=== PATIENT | male | born 1990 | race Caucasian/White ===

== ENCOUNTER 2016-06-30 20:48 | Emergency (ER) | payer OTHER ==
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
[2016-06-30] MEDS ORDERED: HYDROCODONE/ACETAMINOPHEN 5-325 MG TABLET PO ONE (23:19)
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
[2016-07-01 00:22] VITALS: BP 116/65
== END 2016-07-01 01:03 | disposition home or self-care (01) ==
LOC: ER 20:48
DX: S29.012A Strain of muscle and tendon of back wall of thorax, initial encounter (principal); S46.911A Strain of unspecified muscle, fascia and tendon at shoulder and upper arm level, right arm, initial encounter; S39.012A Strain of muscle, fascia and tendon of lower back, initial encounter; M25.511 Pain in right shoulder; M54.9 Dorsalgia, unspecified; V43.62XA Car passenger injured in collision with other type car in traffic accident, initial encounter; F17.200 Nicotine dependence, unspecified, uncomplicated
CPT/HCPCS: 72070; 72110; 99283

== ENCOUNTER 2016-12-07 10:49 | Emergency (ER) | payer SELFPAY ==
[2016-12-07] MEDS ORDERED: OXYCODONE-ACETAMINOPHEN 5-325 MG TABLET PO ONE (11:10)
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
--- NOTE | 2016-12-07 12:03 | RADIOLOGY REPORT (SQ) ---
EXAM DESCRIPTION: CHEST PA/LAT COMPLETED DATE/TIME: 12/07/2016 11:29 am REASON FOR STUDY: coughing blood COMPARISON: 09/21/2012 EXAM PARAMETERS: NUMBER OF VIEWS: two views TECHNIQUE: Digital Frontal and Lateral radiographic views of the chest acquired. RADIATION DOSE: NA LIMITATIONS: none FINDINGS: LUNGS AND PLEURA: No opacities, masses or pneumothorax. No pleural effusion. MEDIASTINUM AND HILAR STRUCTURES: No masses or contour abnormalities. HEART AND VASCULAR STRUCTURES: Heart normal size. No evidence for failure. BONES: No acute findings. HARDWARE: None in the chest. OTHER: No other significant finding. IMPRESSION: NO SIGNIFICANT RADIOGRAPHIC FINDING IN THE CHEST. TECHNICAL DOCUMENTATION: JOB ID: [id number] [employer]- All Rights Reserved
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
[2016-12-07 13:27] VITALS: BP 135/87
== END 2016-12-07 13:22 | disposition home or self-care (01) ==
LOC: ER 10:49
DX: S02.80XA Fracture of other specified skull and facial bones, unspecified side, initial encounter for closed fracture (principal); S00.83XA Contusion of other part of head, initial encounter; H92.02 Otalgia, left ear; R68.84 Jaw pain; H57.12 Ocular pain, left eye; R04.2 Hemoptysis; Y04.0XXA Assault by unarmed brawl or fight, initial encounter; F17.200 Nicotine dependence, unspecified, uncomplicated
CPT/HCPCS: 70450; 70486; 71020; 99283

== ENCOUNTER 2016-12-10 15:55 | Emergency (ER) | payer SELFPAY ==
[2016-12-10] MEDS ORDERED: IBUPROFEN 600 MG TABLET PO ONE (17:32)
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
[2016-12-10 17:54] VITALS: BP 128/83
== END 2016-12-10 17:54 | disposition home or self-care (01) ==
LOC: ER 15:55
DX: S02.81XA Fracture of other specified skull and facial bones, right side, initial encounter for closed fracture (principal); Y04.0XXA Assault by unarmed brawl or fight, initial encounter; H92.01 Otalgia, right ear; R51 Headache; F17.200 Nicotine dependence, unspecified, uncomplicated
CPT/HCPCS: 99283

== ENCOUNTER 2017-06-30 21:42 | Emergency (ER) | payer SELFPAY ==
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
[2017-07-01] MEDS ORDERED: HYDROCODONE/ACETAMINOPHEN 5-325 MG (6 TAB/ER DISP) PO PRN (00:54)
[2017-07-01 01:19] VITALS: BP 121/82
== END 2017-07-01 01:57 | disposition home or self-care (01) ==
LOC: ER 21:42
DX: S02.2XXA Fracture of nasal bones, initial encounter for closed fracture (principal); S20.212A Contusion of left front wall of thorax, initial encounter; Z87.81 Personal history of (healed) traumatic fracture; H57.13 Ocular pain, bilateral; R07.81 Pleurodynia; Y04.8XXA Assault by other bodily force, initial encounter; F17.200 Nicotine dependence, unspecified, uncomplicated
CPT/HCPCS: 70486; 99284

== ENCOUNTER 2019-03-01 00:22 | Emergency (ER) | payer BC ==
[2019-03-01 00:28] VITALS: BP 153/77
--- NOTE | 2019-03-01 01:57 | ER Document Report ---
ED General - General Chief Complaint: Skin Sore(s) Stated Complaint: LEFT FOOT WOUND Time Seen by Provider: 03/01/19 01:39 Primary Care Provider: KOBY AMARO DPM [ACTIVE STAFF] - Follow up in 3-5 days Notes: Patient is a 28-year-old male that presents to the emergency department for chief complaint of left foot wound. Patient states that for about a week now he is abrasion type wounds with blistering in the tops of both of his feet. He wears boots and is on his feet 10 hours a day, and he is tried putting gauze and tape over the dorsum of both his feet to help cushion them from the boots, and his right foot did heal out, with the left one continues to scab and then open up again so he decided come to the emergency department. His nurse at his work thought maybe he had diabetes and wanted him checked out for that as well. He denies any polyuria polydipsia, denies any numbness or tingling in his feet denies any fevers, chills, night sweats or streaking or redness up his foot. Past Medical History: Denies chronic medical conditions Past Surgical History: Denies recent or pertinent surgical history, with the exception of recent dental extraction. Social History: Admits to smoking cigarettes, denies current alcohol or illicit drug use. Family History: Reviewed and noncontributory for presenting illness Allergies: Reviewed, see documented allergy list. REVIEW OF SYSTEMS: Other than noted above, the 12 point review of systems was reviewed with the patient and were negative, all pertinent findings are included in the HPI. PHYSICAL EXAMINATION: Vital signs reviewed, nursing noted reviewed. GENERAL: Well-appearing, well-nourished and in no acute distress. HEAD: Atraumatic, normocephalic. EYES: Eyes appear normal, sclera anicteric, conjunctiva are normal. ENT: Moist mucous membranes. NECK: Normal range of motion, supple without lymphadenopathy LUNGS: Breath sounds clear to auscultation bilaterally and equal. No wheezes rales or rhonchi. HEART: Regular rate and rhythm without murmurs EXTREMITIES: Nontender, good range of motion, no pitting or edema. Patient is noted to have what appears to be an abrasion type wound over the dorsum of his left foot, measures approximately 7 mm in diameter, no surrounding ecchymosis or induration. No lymphangitis. Patient has good range of motion and normal cap refill in all digits. The rest of his extremity exam is grossly unremarkable. NEUROLOGICAL: No focal neurological deficits. Moves all extremities spontaneously Motor and sensory grossly intact on exam. PSYCH: Normal mood, normal affect. SKIN: Warm, Dry, normal turgor, no rashes or lesions noted on exposed skin TRAVEL OUTSIDE OF THE [place] IN LAST 30 DAYS: No - Related Data Allergies/Adverse Reactions: No Known Allergies Allergy (Verified 03/06/17 19:43) Home Medications: chantix, tylenol arthritis, Past Medical History - Social History Smoking Status: Current Every Day Smoker Family History: Reviewed & Not Pertinent Patient has suicidal ideation: No Patient has homicidal ideation: No Renal/ Medical History: Denies: Hx Peritoneal Dialysis GI Medical History: Reports: Hx Hepatitis - Hep C-treated with román Musculoskeletal Medical History: Reports Hx Musculoskeletal Trauma - Fracture orbital right Infectious Medical History: Reports: Hx Hepatitis - Hep C-treated with román Past Surgical History: Reports: Hx Tonsillectomy - Immunizations Hx Diphtheria, Pertussis, Tetanus Vaccination: Yes Physical Exam - Vital signs Vitals: Temp Pulse Resp BP Pulse Ox 97.8 F 79 18 153/77 H 96 03/01/19 00:03/01/19:03/01/19:03/01/19:03/01/19: Course - Re-evaluation Re-evalutation: Patient seen and examined, vital signs reviewed, on my exam the patient is noted to have a very superficial abrasion type wound, likely from friction from his boots, will apply Xeroform and nonadhesive dressing, and is given prescription for antibiotics, advised only to take them if he develops redness around the wound, he is given a work note, and advised to wear different shoes, as they are likely the cause of the patient's blistering in the area of friction. His blood sugar was checked, and was 114, effectively ruling out diabetes mellitus. Patient said he ate a few hours prior to ED arrival. - Vital Signs Vital signs: Temp Pulse Resp BP Pulse Ox 97.8 F 79 18 153/77 H 96 03/01/19 00:26 03/01/19 00:26 03/01/19 00:03/01/19:26 03/01/19 00:26 - Laboratory Laboratory results interpreted by me: 03/01/19 01:51 POC Glucose 114 H Discharge - Discharge Clinical Impression: Wound of foot Condition: Stable Disposition: HOME, SELF-CARE Instructions: Abrasions ([facility]) Additional Instructions: I recommend staying off your feet and using a different pair of footwear if possible, you can apply a topical antibiotic, this should heal if you are able to keep your foot out of abrasive foot wear such as your boots, for at least 24 hours if not longer to allow it to heal. If not, you may continue to come back and will take longer to heal. Prescriptions: Cephalexin Monohydrate [Keflex 500 mg Capsule] 500 mg PO Q8H 5 Days #15 capsule Referrals: KOBY AMARO DPM [ACTIVE STAFF] - Follow up in 3-5 days
== END 2019-03-01 02:10 | disposition home or self-care (01) ==
LOC: ER 00:22
DX: S90.812A Abrasion, left foot, initial encounter (principal); X58.XXXA Exposure to other specified factors, initial encounter; F17.210 Nicotine dependence, cigarettes, uncomplicated; Z79.899 Other long term (current) drug therapy
CPT/HCPCS: 82962; 99283